=== PATIENT | female | born 1980 | race Caucasian/White ===

== ENCOUNTER 2022-09-11 09:03 | Emergency (ER) | payer SELFPAY ==
[2022-09-11 09:08] VITALS: BP 145/92; PULSE 103; RESP 14; TEMP 36.3; O2SAT 97; BMI 31.3
--- NOTE | 2022-09-11 09:22 | XR_ITS ---
WS: [id number] XR chest 1V portable [id number] REASON FOR EXAM: sob FINDINGS: The heart and mediastinum are within normal limits. Calcified granulomatous disease in both hemithoraces. No active pulmonary parenchymal or pleural disease. Chest is relatively unchanged compared to 04/04/2016. Artifact overlying the mid and lower lateral left chest and axilla. XR/XR chest 1V portable [id number] IMPRESSION: No acute/subacute chest abnormality.
--- NOTE | 2022-09-11 09:42 | W.ED.SOB ---
HPI - SOB/Dyspnea General: Chief Complaint: Shortness of Breath/Dyspnea Stated Complaint: sob Time Seen by Provider: 09/11/22 09:08 Source: patient Mode of arrival: ambulatory Limitations: no limitations History of Present Illness: HPI Narrative: Patient is a 42-year-old female with a history of asthma and daily smoking here for concerns of nonproductive cough, nasal congestion, sinus pain/pressure, and hoarseness. Patient states she has had a cough for approximately 2 months now does not seem to be improving. She states she is now hoarse from how much coughing she is doing. No hemoptysis. She is not having any chest pain. No lower extremity swelling. No risk factors for PE. She is not running fevers. Patient has been using her rescue albuterol inhaler as needed. MD elicited complaint: cough Pertinent past history: asthma and other (smoking) Onset (ago): month(s) Timing: constant Severity: moderate Exacerbating factors: exertion and coughing Relieving factors: nothing Known history of: asthma Associated symptoms: Reports chest congestion; Deny chest pain, dizziness, fever(s), hemoptysis, lightheadedness, palpitations or syncope Treatment prior to arrival: none Related Data: Home oxygen amount: none Review of Systems Const: Denies: fever(s), chills, body aches, fatigue or malaise Eyes: Denies: change in vision, blurry vision, photophobia, floaters or seeing flashes ENMT: Reports: nasal discharge, nasal congestion and sinus pain; Denies: throat pain, odynophagia, dental pain, ear or mastoid pain, ear discharge or epistaxis Card: Reports: dyspnea on exertion; Denies: chest pain, palpitations, irregular heart rhythm, edema, swelling of feet/ankles, lightheadedness, syncope or pre-syncope Resp: Reports: dyspnea, non-productive cough and chest congestion; Denies: wheezing or hemoptysis Musc: Denies: neck pain Skin/Breast: Denies: rash Neuro: Denies: headache(s) or dizziness PFSH ED PFSH: Family History Mother Diabetes Other Cancer Hypertension Social History Smoking and tobacco status: current every day smoker cigarettes Packs smoked per day: 1 Quit status (tobacco): not considering quitting Second hand smoke exposure: Yes Smoking risk assessment/counseling performed?: Yes Alcohol intake: never Desire information about alcohol rehabilitation?: No Counseling given: No Desire information about substance/drug rehabilitation?: No Counseling given: No Adopted: No Caregiver/support person: No Lives independently: Yes Household members: family Housing: House Marital status: Number of children: 3 Number of grandchildren: 3 Highest education level completed: GED or Equivalent service: No Current occupational status: unemployed History of recent travel: No Physical Exam Const: COMMON NORMALS: no acute distress, patient oriented x3, no limitations, alert and well nourished GENERAL APPEARANCE: cooperative ORIENTATION/CONSCIOUSNESS: Yes awake, Yes oriented to person, Yes oriented to place and Yes oriented to time HENMT: COMMON NORMALS: normocephalic and atraumatic HEAD & SCALP: normal to inspection, normocephalic and atraumatic FACE & SINUS: normal facial exam MOUTH: other (hoarseness) THROAT: posterior oropharynx normal, tonsils normal and uvula midline Eye: GENERAL EYE: appearance normal, both eyes and all related structures Neck/C-Spine: COMMON NORMALS: full ROM, no lymphadenopathy and no meningeal signs Chest: COMMONS NORMALS: normal inspection of the chest and normal palpation of entire chest wall Resp: COMMON NORMALS: normal respiratory effort and clear to auscultation bilaterally AUSCULTATION: clear to auscultation bilaterally OTHER: active dry sounding cough Cardio: COMMON NORMALS: regular rate and regular rhythm RATE: regular rate RHYTHM: regular rhythm Extremity: COMMON NORMALS: normal to inspection, capillary refill normal, no clubbing, cyanosis or edema, no calf tenderness and no pedal edema Neuro: BONIFACIO COMA SCALE: document GCS findings Bonifacio coma scale eye opening: Spontaneous [place] coma scale verbal response: Orientated Bon[place]acio coma scale motor response: Obey commands [place] coma scale total score: 15 COMMON NORMALS: patient oriented x3, CN's II-XII intact bilaterally, moves all extremities, no focal motor deficits, no sensory deficits noted and gait normal SENSORIUM/ORIENTATION: Yes alert, Yes oriented to person, Yes oriented to place and Yes oriented to time MENINGEAL SIGNS: Yes no meningeal signs Skin: COMMON NORMALS: no rashes or lesions noted GENERAL SKIN EXAM: no rashes or lesions noted Course Vital Signs: Vital signs: Vital Signs Temperature 97.4 F L 09/11/22 09:08 Pulse Rate 103 H 09/11/22 09:08 Respiratory Rate 14 09/11/22 09:08 Blood Pressure 145/92 09/11/22 09:08 Pulse Oximetry 97 09/11/22 09:08 Oxygen Delivery Me thod 09/11/22 09:08 MDM - SOB/Dyspnea Medical Decision Making Patient can continue her albuterol inhaler as needed. Due to length of symptoms and asthma/smoking history will go ahead and place her on steroids and antibiotics. Recommend she follow-up with her primary care provider in one week if symptoms do not seem to be improving. Return to ED precautions given. Lab Data Labs/Radiology: Radiology Impressions Chest X-Ray 09/11/22 09:22 IMPRESSION: No acute/subacute chest abnormality. Discharge Plan Discharge Patient Disposition: Home Clinical Impression: Asthmatic bronchitis Qualifiers: Asthma severity: mild Asthma persistence: intermittent Asthma complication type: with acute exacerbation Qualified Code(s): J45.21 - Mild intermittent asthma with (acute) exacerbation Condition: Stable Prescriptions: New prednisone 10 mg tablet 10 mg PO DAILY 10 Days Qty: 27 0RF Rx Instructions: 6 tabs on days 1-2, 5 tabs on days 3, 4 tabs on day 4, 3 tabs on day 5, 2 tabs on day 6, 1 tab on day 7 levofloxacin 500 mg tablet 500 mg PO DAILY 7 Days Qty: 7 0RF Discontinued ciprofloxacin HCl [Cipro] 500 mg tablet 500 mg PO BID 10 Days Qty: 20 0RF No Action neomycin-polymyxin B-dexameth [Maxitrol] 3.5mg/mL-10,000 unit/mL-0.1 % drops,suspension 2 drp ophthalmic (eye) TID 7 Days Qty: 5 0RF Rx Instructions: ROUTE EAR Discharge Orders: Discharge ED (Routine); Ordered 09/11/22 Ordered By: Carmen Tavera Coding Level of Care Code 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
== END 2022-09-11 09:53 | disposition home or self-care (01) ==
PROVIDERS: Emergency Provider Physician Assistant
DX: J45.21 Mild intermittent asthma with (acute) exacerbation (principal); F17.210 Nicotine dependence, cigarettes, uncomplicated
CPT/HCPCS: 71045; 99283

== ENCOUNTER → 2024-04-15 11:13 | Outpatient (BNVA) | payer MEDICAID, SELFPAY | PROVIDERS: Visit Provider Nurse Practitioner Family | DX: R05.9 Cough, unspecified (principal) | CPT/HCPCS: 87426 ==